=== PATIENT | female | born 1995 ===

== ENCOUNTER 2024-04-24 08:36 | Inpatient (IN) | payer OTHER ==
[~2024-04-24] VITALS: Ht 157.5 cm; Wt 2.7 kg
[2024-04-24] MEDS ORDERED: PRENATAL TABLE1 EAC1 PO (08:44)
[2024-04-24] MEDS ORDERED: IRON325 MG PO (08:44)
[2024-04-24] MEDS ORDERED: RINGERS SOLUTION,LACTATED 1,000 ML IV SCH (08:45)
[2024-04-24 09:42] LABS: URINE APPEARANCE Cloudy; URINE BILIRRUBIN Negative (NEGATIVE); URINE BLOOD Negative; URINE COLOR Yellow; URINE GLUCOSE Negative (NEGATIVE); URINE KETONE Negative (NEGATIVE); URINE LEUKOCYTE Trace; URINE NITRATE Negative; URINE PROTEIN Negative (NEGATIVE)
[2024-04-24 09:45] LABS: URINE BACTERIA 1806.5 uL (0.0-1933); URINE EPITHELIAL CELLS 78.5 uL (0.0-38.8); URINE RBC 4.1 uL (0.0-20.8)
[2024-04-24 09:50] LABS: URINE CAST 0.15 uL (0.0-1.40)
[2024-04-24 09:54] LABS: MEAN CELL VOLUME 85.9 fL (80.00-100.00); MEAN CORPUSCULAR HEMOGLOBIN 29.3 pg (27.00-32.0); MEAN CORPUSCULAR HGB CONC 34.1 g/dl (32.0-36.0); PLATELET COUNT 264 K/uL (150-450); RED BLOOD COUNT 4.42 M/uL (4.00-6.00); RED CELL DISTRIBUTION WIDTH 19.1 % (11.5-14.5)
[2024-04-24 09:59] LABS: INR < 0.93; PARTIAL THROMBOPLASTIN TIME 29.4 SECONDS (22.0-34.0); PROTHROMBIN TIME 9.8 SECONDS (9.0-11.5)
[2024-04-24 10:57] LABS: ALBUMIN 2.6 gm/dL (3.4-5.0); BILIRUBIN TOTAL 0.62 mg/dL (0.3-1.2); CREATININE SERUM 0.52 mg/dL (0.55-1.02); GFR 141.45; GLOBULINA 3.6 G/DL (2.4-3.5); POTASSIUM 3.83 mEq/L (3.5-5.1); TOTAL PROTEIN 6.2 gm/dL (6.4-8.2)
[2024-04-24] MEDS ORDERED: OXYTOCIN 10 UNITS/ML VIAL IV NR (12:00)
[2024-04-24] MEDS ORDERED: CEFAZOLIN SODIUM 1,000 MG VIAL IV SCH (12:00)
[2024-04-24] MEDS ORDERED: ERYTHROMYCIN BASE 1 GM TUBE OP NR (12:00)
[2024-04-24] MEDS ORDERED: KETOROLAC TROMETHAMINE 60 MG VIAL IM NR (13:45)
[2024-04-24] MEDS ORDERED: PROMETHAZINE HCL 25 MG/ML AMPUL IV SCH (13:45)
[2024-04-24 13:54] LABS: ABG PH 7.335 (7.35-7.45); ABG pCO2 51.6 mmHg (35-45); SaO2 30.8 %
[2024-04-24 13:55] LABS: ABG PO2 21.4 mmHg (80-100); BASE EXCESS 0.2 mmol/l; BICARBONATE 26.9 mmol/l (23-25); Tco2 28.5 mmol/l
[2024-04-24 13:56] LABS: o2 21 %
[2024-04-24] MEDS ORDERED: MEPERIDINE HCL/PF 50 MG/ML VIAL IV SCH (16:00)
[2024-04-24 19:11] LABS: HEMATOCRIT 40.8 % (36.0-45.00); HEMOGLOBIN 13.8 g/dL (12.0-15.00); MEAN CELL VOLUME 85.9 fL (80.00-100.00); MEAN CORPUSCULAR HEMOGLOBIN 29.2 pg (27.00-32.0); MEAN CORPUSCULAR HGB CONC 33.9 g/dl (32.0-36.0); PLATELET COUNT 273 K/uL (150-450); RED BLOOD COUNT 4.75 M/uL (4.00-6.00); RED CELL DISTRIBUTION WIDTH 18.6 % (11.5-14.5)
[2024-04-25] MEDS ORDERED: OxyCODONE HCL/APAP UD (PERCOCET) PO SCH (02:00)
[2024-04-25] MEDS ORDERED: DOCUSATE CALCIUM 240 MG CAPSULE PO SCH (09:00)
[2024-04-25] MEDS ORDERED: SIMETHICONE 125 MG CAPSULE PO SCH (17:00)
[2024-04-25] MEDS ORDERED: ACETAMINOPHEN 500 MG GEL..CAP PO SCH (20:00)
[2024-04-25] MEDS ORDERED: IBUprofen 800 MG TABLET PO SCH (21:00)
[2024-04-26] MEDS ORDERED: COLACE100 MG PO (10:07)
[2024-04-26] MEDS ORDERED: SIMETHICONE125 M1 PO (10:07)
[2024-04-26] MEDS ORDERED: IBU800 MG PO (10:07)
== END 2024-04-26 13:13 | disposition home or self-care (01) | DRG 788 ==
LOC: OB/GYN 08:36 → LDR 08:36 → O/R 15:17 → OB/GYN 15:41
PROVIDERS: ADMIT Specialist; ATTEND Specialist
PROC: 4A1HXCZ Monitoring of Products of Conception, Cardiac Rate, External Approach (ICD-10-PCS; 2024-04-24)
PROC: 10D00Z1 Extraction of Products of Conception, Low, Open Approach (ICD-10-PCS; principal; 2024-04-24 12:30)
DX: O34.211 Maternal care for low transverse scar from previous cesarean delivery (principal); Z3A.38 38 weeks gestation of pregnancy; Z37.0 Single live birth; Z20.822 Contact with and (suspected) exposure to COVID-19